=== PATIENT | female | born 1940 | race African-American/Black ===

== ENCOUNTER 2017-07-25 11:29 | Emergency (ER) | payer MEDICARE, OTHER ==
[~2017-07-25] VITALS: Ht 160 cm; Wt 78.0 kg
[~2017-07-25 11:29] MED LIST: AMLO5TAB4 PO; FURO-151 PO; NAPR-681 PO; POTA20TA12 PO
[2017-07-25] MEDS ORDERED: ACETAMINOPHEN 325MG TABLET PO STA (13:24)
[2017-07-25 14:04] LABS: CLARITY URINE CLEAR (CLEAR); COLOR URINE YELLOW (YELLOW); KETONES URINE NEGATIVE (NEGATIVE); LEUKOCYTE ESTERASE URINE TRACE (NEGATIVE); NITRITE URINE NEGATIVE (NEGATIVE); OCCULT BLOOD URINE NEGATIVE (NEGATIVE); PH URINE 7.5 (4.5-8.0); PROTEIN URINE NEGATIVE (NEGATIVE); SPECIFIC GRAVITY URINE 1.007 (1.005-1.030); UROBILINOGEN URINE 0.2 E.U./dL (0.2-1.0)
[2017-07-25 15:30] VITALS: BP 132/79
== END 2017-07-25 16:05 | disposition home or self-care (01) ==
LOC: ER 12:14
DX: M79.1 Myalgia (principal); I10 Essential (primary) hypertension; K21.9 Gastro-esophageal reflux disease without esophagitis; E78.00 Pure hypercholesterolemia, unspecified; R10.9 Unspecified abdominal pain
CPT/HCPCS: 71045; 76705; 81003; 99285